=== PATIENT | female | born 1950 | race Caucasian/White ===

== ENCOUNTER 2024-10-24 07:24 | Emergency (ER) | payer MEDICARE, SELFPAY ==
[2024-10-24 07:28] VITALS: BP 141/72
--- NOTE | 2024-10-24 07:58 | ED.GENMED ---
History of Present Illness
General
Chief Complaint: Fainting/Passed Out
Source: patient, family (sister) and ambulance crew
Exam Limitations: none
Time Seen by Provider: 10/24/24 07:34
Nursing documentation reviewed up to this point in time: agreed with
History of Present Illness
History of Present Illness:
74-year-old female with no reported chronic medical issues (although has not seen a doctor in 10+ years she says) who presents to the emergency room via EMS for evaluation after syncopal event. Patient was walking her dog and says that she was
stressed because her dog had something in his mouth and would not release it. While she was walking into the house holding her dog on the leash she was trying to get this item out of the dog's mouth and began to feel clammy and lightheaded. She
said she sat down on a nearby stair. Her sister was present and says that she was talking to the patient and then patient slumped backwards and was not responding for about 30 seconds. Patient says that she remembers feeling lightheaded, did not
think that she passed out but does not recall sister calling out or touching her face. EMS was called to bring her to the hospital for assessment. Apparently shortly after EMS arrival patient had second brief episode of syncope. She has
associated nausea but denies any other complaints. She says she did not and does not have any chest pain, shortness of breath, palpitations. She denies having had similar issues in the past. She denies any personal or family history of heart
issues.
Review of Systems
Review of Systems
All Other Systems: ROS reviewed and negative except as documented in HPI and ROS
Respiratory: Denies trouble breathing
Cardiac: Reports syncope; Denies chest pain or palpitations
ABD/GI: Reports nausea; Denies abdominal pain or vomiting
: Denies flank pain
Musculoskeletal: Denies neck pain or back pain
Neurological: Denies headache
Phy Exam
Physical Exam
Physical Exam:
General: Awake, alert, oriented x3; no acute distress
Head: Normocephalic, atraumatic
Eyes: Conjunctiva normal, pupils equal round reactive to light bilaterally
Throat: Airway intact, handling secretions
Neck: Trachea midline
Lungs: Clear to auscultation bilaterally, no wheezing, rales, rhonchi
Heart: Regular rate and rhythm, no murmurs, gallops, or rubs appreciated
Abd: Soft, non distended, nontender, no palpable masses
Neuro: Cranial nerves grossly intact, speech fluid, no gross motor or sensory deficits
Extremities: No edema in extremities, equal pulses in all extremities
Scores
Heart Failure Risk
Heart Failure Risk Score: Not Applicable
Heart Score for Chest Pain Patients
STEMI patient?: Not applicable
Withdrawal Assessment of Alcohol
Withdrawal Assessment Completed?: Not applicable
Course
Orders/Labs/Results
Orders:
Orders
10/24/24 07:27
EKG [Electrocardiogram (*1)] Urgent
Reason for Study: Syncope
10/24/24 07:46
CR Chest - 2 Views Urgent
Comment:
Reason For Exam: syncope
10/24/24 07:47
Cardiac Monitoring- Treatment ONCE
EKG- Treatment ONCE
Pulse Ox/spot Check [RESP] Urgent
Quantity: 1
Special Instructions: ON ROOM AIR
10/24/24 07:48
Complete Blood Count/With Diff Urgent
Comprehensive Metabolic Panel Urgent
Glycohemoglobin (HgbA1c) Urgent
Troponin I Urgent
10/24/24 07:57
CARDIOLOGY CONSULT Urgent
Consulting Provider: Gilmar Lay
Was physician already notified: Yes
10/24/24 07:58
Cardiac Monitoring- Treatment ONCE
Ondansetron Injectable [Zofran] 4 mg IV NOW STA
10/24/24 10:51
Troponin I Urgent
10/24/24 10:53
Add On- LAB Routine
Tests Added?: hgbA1c
Urinalysis Reflex To Culture Routine
Abnormal Lab Results
10/24/24
07:48
WBC 12.8 H 10^3/uL
(4.8-10.8)
MCHC 32.9 L g/dL
(33.0-37.0)
Abs Immat Gran (auto) 0.1 H 10^3/uL
(0-0.05)
Absolute Neuts (auto) 10.0 H 10^3/uL
(1.4-6.5)
Absolute Monos (auto) 0.8 H 10^3/uL
(0.1-0.6)
Neutrophils % 78.3 H %
(42.2-75.2)
Lymphocytes % 14.0 L %
(20.5-51.1)
Glucose 194 H mg/dl
(70-99)
Hemoglobin A1c 5.8 H %
(4.0-5.6)
10/24/24 07:48
10/24/24 07:48
Vital Signs
Initial and Last Documented VS:
Initial Vital Signs
Temp Pulse Resp BP Pulse Ox
37.3 C 79 16 141/72 99
10/24/24 07:28 10/24/24 07:28 10/24/24 07:28 10/24/24 07:28 10/24/24 07:28
Last Documented Vital Signs
Temp Pulse Resp BP Pulse Ox
37.3 C 92 21 138/95 95
10/24/24 07:28 10/24/24 11:45 10/24/24 11:45 10/24/24 11:00 10/24/24 11:45
MDM/Problems Addressed
Differential Diagnosis Includes:
Vasovagal syncope, valvular disease, dysrhythmia, dehydration, electrolyte derangement, anemia, ACS considered less likely clinically
MDM/Problems Addressed:
74-year-old female presents to the emergency room for evaluation after syncopal episode x 2. She believes it was triggered by stressful episode with her dog. She complains of some mild nausea but no other complaints here. Vitals and exam as
above. EKG shows sinus rhythm with no AV block, no delta wave, no Brugada, normal QTc, no acute ischemic changes. Will plan to place an IV check labs including CBC and CMP, troponin. Will monitor on telemetry. Case discussed with cardiology for
evaluation given multiple episodes of syncope and patient with poor long-term medical follow-up.
Labs reviewed: CBC shows marginal leukocytosis to 12.8 unlikely of acute clinical significance. CMP shows random glucose 194 no other acute abnormalities. Troponin undetectable. Chest x-ray shows no acute disease. Continue to monitor on
telemetry. Cardiology consult pending.
Cardiology evaluated bedside, plan for discharge with outpatient cardiology referral, plan for outpatient echocardiogram. This is patient's preference in fact she has been requesting discharge. I did send message to PCP referral line to ensure
that she can establish with a primary doctor. Spoke about return precautions all questions answered.
*Pulse Oximetry
Patient hypoxic: no
*EKG
Interpreted by ED Provider?: Yes
Heart Rate: 72
Rate: normal
Rhythm: sinus
Irene: normal axis
Interval: normal interval
QRS Pattern: normal QRS
Ischemia: no ischemia
*Critical Care Note
Total Time (30-74mins, 75-104mins- exclusive of procedures): Not Applicable
Data Reviewed
Source: patient, family and ambulance crew
Patient Management
Discussion with other providers: Ethanol Operations Manager (Discussed with cardiology)
ED Attending Note
-
Portions of this chart may have been created with voice recognition software.� Occasional wrong word or��sound alike� substitutions may have occurred due to the inherent limitations of voice recognition software.
Discharge Plan
Departure
Patient Disposition: Home (Routine Discharge)
Date of Disposition: 10/24/24
Time of Disposition: 12:34
Patient with high blood pressure during this ER visit?: No
Discharge Problem:
Syncope
Instructions: Syncope (Fainting) (DC)
Referrals:
Gilmar Lay, DO [Active] - Call in 1-3 days for appt
Activity Restrictions/Additional Instructions:
Thank you for visiting the Emergency Department at [facility].
1. Please schedule a follow up appointment as directed. Call first thing tomorrow morning to make an appointment.
2. If indicated, please take your medications as instructed and indicated on discharge paperwork.
3. If any of your symptoms do not improve, or persist, or become more severe within 6-12 hours, please return to the emergency department for further care.
4. Please return to the emergency department if you develop a headache, neck pain/stiffness, fever greater than 100.4F, chest pain, shortness of breath, persistent nausea, vomiting, slurred speech, difficulty walking, numbness/tingling, weakness,
signs of infection or any other symptoms that are worrisome to you.
Please call [phone] if you have any questions.
Interventions
Interventions:
*Risk Screen - Suicide Last Done: 10/24/24 07:28
*General Assessment Last Done: 10/24/24 07:28
*Neglect/Abuse Screening Last Done: 10/24/24 07:28
*ED- Fall Risk Assessment Last Done: 10/24/24 07:54
*ED COVID-19 Vaccine History Last Done: 10/24/24 07:54
ED- Cardiac Assessment Last Done: 10/24/24 07:52
ED- Neurological Assessment Last Done: 10/24/24 07:52
Discharge Date and Time
Print Language: BELIZEAN
[2024-10-24 08:00] VITALS: BP 137/71
[2024-10-24] MEDS: ZOFRAN 4 MG IV (08:02)
[2024-10-24 08:09] LABS: ALT (SGPT) 15 U/L (0-35); AST (SGOT) 18 U/L (14-36); Albumin 4.4 g/dl (3.5-5.0); Alkaline Phosphatase 88 U/L (38-126); Blood Urea Nitrogen 16 mg/dl (7-17); Calcium 9.9 mg/dl (8.4-10.2); Carbon Dioxide 28 mmol/L (22-30); Chloride 105 mmol/L (98-107); Glucose 194 mg/dl (70-99); Potassium 4.8 mmol/L (3.5-5.1); Sodium 137 mmol/L (135-145); Total Bilirubin 0.9 mg/dl (0.2-1.3); Total Protein 7.1 g/dl (6.3-8.2); eGFR > 60.00
[2024-10-24 08:17] LABS: % Basophils 0.3 % (0-2); % Eosinophils 0.7 % (0-6); % Immature Granulocytes 0.5 % (0-0.5); % Monocytes 6.2 % (1.7-9.3); % Neutrophils 78.3 % (42.2-75.2); Absolute Eosinophils 0.1 10^3/uL (0-0.7); Absolute Immature Granulocytes 0.1 10^3/uL (0-0.05); Absolute Lymphocytes 1.8 10^3/uL (1.2-3.4); Absolute Monocytes 0.8 10^3/uL (0.1-0.6); Hematocrit 43.8 % (37.0-47.0); Hemoglobin 14.4 g/dL (12.0-16.0); Mean Corp Hgb Conc. 32.9 g/dL (33.0-37.0); Mean Corpuscular Hgb 29.4 pg (27.0-31.0); Mean Corpuscular Volume 89.4 fL (81.0-99.0); Mean Platelet Volume 10.1 fL (7.4-10.4); Nucleated Red Blood Cells % 0 %; Platelet Count 213 10^3/uL (130-400); White Blood Cell Count 12.8 10^3/uL (4.8-10.8)
[2024-10-24 08:20] LABS: Troponin I < 0.012 ng/ml
[2024-10-24 10:29] VITALS: BP 134/76
[2024-10-24 11:00] VITALS: BP 138/95
[2024-10-24 11:34] LABS: Troponin I < 0.012 ng/ml
[2024-10-24 11:51] LABS: Glycohemoglobin (HgbA1c) 5.8 % (4.0-5.6)
--- NOTE | 2024-10-24 11:53 | CON.CAR ---
Addendum entered and electronically signed by Gilmar Lay DO 10/24/24 16:34:
I saw and examined the patient.
The Metal Base Blocker's note was reviewed and I agree with the note.
Comment:
Plan:
Appears to have had vasovagal syncope. Her cardiac workup in the emergency room is unremarkable with negative troponin. EKG without ischemic changes.
We discussed outpatient echocardiogram to evaluate for structural heart disease.
Outpatient follow-up with cardiology for consideration for stress testing.
She admits to not seeing physicians for many years and is going to find a primary she states. This is her preference.
We did discuss compliance with follow-up and recommendations.
Discussed with the emergency room physician.
Discussed with sister at bedside..
Original Note:
Consultation
Consultation Request
Date/Time Consultation Performed: 10/24/24
Requesting Provider: Dr. Leal
Performing Provider: Gisela Guardado PA-C for Dr. Lay
Reason for Consultation: syncope
Medical History
-
Chief Complaint: syncope
History of Present Illness:
Patient is a 74 yo F without significant PMH who presented to ER today for evaluation of unresponsive episode. She reports she has a 1 year old [place] dog who she reports has been 'difficult.' She woke up and took out the dog. He had
something in his mouth and she was trying to get it out and it was very stressful by her report. She states she then felt dizzy and lightheaded like she was going to pass out. She sat down on the steps and her sister who was present states she laid
back and although her eyes were open she was unresponsive to her calling her name or lightly slapping her cheeks. She was like this for about 30 seconds then came to however the sister had already called 911. Then when EMS arrived she had another
episode where she felt as though she was going to pass out however does not feel that she did. EMS told sister that her BP had dropped. She had not had anything to eat or drink this morning. She denies history of syncope. Denies CP, SOB,
palpitations, calf pain, LE edema. She reports she is active at home, walks 3 miles per day, mows lawn without difficulty. Cardiology consulted for evaluation. She does not have a PCP and has not seen a doctor in 8+ years.
PMH:
impaired fasting glucose
Past Medical History
Past Medical History: Other (in HPI)
Social History
Tobacco: Non-Smoker
Alcohol: Occasional
Living: With Family (sister)
Employment: Retired
Family History
Family History: Reviewed & Not Pertinent
Allergies / Home Medications
Allergy/AdvReac Type Severity Reaction Status Date / Time
IV contrast Allergy Anaphylaxis Uncoded 10/24/24 07:28
Review of Systems
-
History Source: Patient and Family
All other systems: Negative unless noted
Physical Exam
Vital Signs
Temp Pulse Resp BP Pulse Ox
99.1 F 78 21 137/71 99
10/24/24 07:28 10/24/24 08:30 10/24/24 08:30 10/24/24 08:00 10/24/24 08:30
Lab Results
10/24/24 07:48
10/24/24 07:48
Troponin I < 0.012 ng/ml 10/24/24 10:51
Physical Exam
General: No Apparent Distress and Comfortable
HEENT: Normocephalic, Anicteric and Moist Mucous Membranes
Respiratory: Clear and Non Labored Respirations
Cardiac: S1/S2 and Regular Rhythm
GI: Soft, Non Tender, Non Distended and Normal Bowel Sounds
Musculoskeletal: No Clubbing, No Cyanosis and No Edema
Skin: Warm and Dry
Neuro: AO x 3
Impression / Plan
-
Primary Nanofabrication Specialist: none prior to admission
Assessment:
Presentation with syncope
Negative troponin x1
Leukocytosis, mild
Sinus tachycardia
impaired fasting glucose
Plan:
-Patient presents with syncopal vs unresponsive episode, witnessed by patient's sister.
-suspected vasovagal vs dehydration related. patient feels likely related to stress in the setting of event with her dog.
-trops negative x2
-EKG SR without acute abnormalities
-given mild leukocytosis, could consider UA, however patient without urinary symptoms. CXR without evidence of acute abnormalities. nontoxic appearing. denies recent illness, fevers/chills
-glucose 194. added on hgbA1c. she reports history of impaired glucose levels in past
-would consider for OP stress testing and echo. patient resistant to further testing at this time
-will arrange OP cardiac follow up. encouraged her to establish care with PCP
-d/w patient and sister at bedside
-d/w ER physician
Data Reviewed
-
EKG: Tracing Personally Visualized and interpreted
Radiology: Report Reviewed by me
Labs: Labs Reviewed by me
== END 2024-10-24 13:12 | disposition home or self-care (01) ==
LOC: EMR 07:24
PROVIDERS: CONSULT PHYSICIAN Nuclear Medicine Nuclear Cardiology; EMERGENCY PHYSICIAN Emergency Medicine
DX: R55 Syncope and collapse (principal); R11.0 Nausea; R00.0 Tachycardia, unspecified; D72.829 Elevated white blood cell count, unspecified; Z91.041 Radiographic dye allergy status
CPT/HCPCS: 99285; 96374; 94760; 71046; 80053; 83036; 84484; 85025; 93005